=== PATIENT | female | born 1960 | race Caucasian/White ===

== ENCOUNTER 2017-03-06 19:53 | Inpatient (IN) | payer MEDICARE ==
[~2017-03-06] VITALS: Ht 157.5 cm; Wt 85.1 kg
--- NOTE | ~2017-03-06 | HEMODYNAMI ---
PATIENT:ANIA MILLER MEDICAL RECORD: [id number] : 56 LOCATION:[facility] D.2104 ADMISSION DATE: 03/06/17 Generatedon:03/07/201714:18 Patient name: ANIA MILLER Patient #: [id number] SSN: : Date of study: 03/07/2017 Page: Of Hemodynamic Procedure Report Patient Data Patient Demographics Procedure consent was obtained First Name: ANIA Gender: Female Last Name: ANGELA : 1960 Patient #: [id number] Age: 56 year(s) Race: Unknown Additional ID: [id number] Contact details Address: [address] [place] [address] State: [place] City: [place] Zip code: [address] Admission Admission Data Admission Date: 03/06/2017 Admission Time: 22:18 Room #: D.2104 Procedure Procedure Types Cath Procedure Peripheral Cath Diagnostic Procedure Miscellaneous Procedure Description Procedure Date Procedure Date: 03/07/2017 Procedure Start Time: 13:48 Procedure Staff Name Function Drew Fuchs MD Performing Physician Rama Turner RT Scrub Virgil Hampton RN Nurse Matt Scott RT Monitor Procedure Data Cath Procedure Fluoroscopy Diagnostic fluoroscopy Total fluoroscopy Time: 1.1 time: 1.1 min min Diagnostic fluoroscopy Total fluoroscopy dose: 42 dose: 42 mGy mGy Contrast Material Contrast Material Type Amount (ml) Isovue 300 20 Procedure Medications Medication Administration Route Dosage Fentanyl I.V. 50 mcg Versed 1 mg Fentanyl I.V. 50 mcg Hemodynamics Rest Heart Rate: 83 (bpm) Snapshots Pre Cath Intra NCS Post Cath Vital Signs Time Heart Resp SPO2 NIBP (mmHg) Rhythm Pain Sedation Rate (ipm) (%) Status Level (bpm) 13:23:49 99 11 98 147/99(120) NSR 0 (11) 10(A) , No pain 13:28:14 80 13 98 143/84(110) NSR 0 (11) 10(A) , No pain 13:32:34 91 12 98 145/85(125) NSR 0 (11) 10(A) , No pain 13:36:54 5 98 143/88(124) NSR 0 (11) 10(A) , No pain 13:41:16 74 98 145/87(120) NSR 0 (11) 10(A) , No pain 13:45:40 99 143/84(120) NSR 0 (11) 10(A) , No pain 13:50:02 82 33 99 142/78(118) NSR 0 (11) 10(A) , No pain 13:54:21 82 8 98 134/81(102) NSR 0 (11) 10(A) , No pain 13:58:38 78 12 98 140/81(108) NSR 0 (11) 10(A) , No pain 14:02:59 79 10 99 151/81(111) NSR 0 (11) 10(A) , No pain 14:07:17 75 12 97 128/84(117) NSR 0 (11) 10(A) , No pain 14:12:16 80 10 96 Measuring NSR 0 (11) 10(A) , No pain 14:12:34 81 12 95 145/92(124) NSR 0 (11) 10(A) , No pain 14:16:54 114/70(92) NSR 0 (11) 10(A) , No pain Medications Time Medication Route Dose Verified Delivered Reason Notes Effectivene ss by by 13:46:07 Fentanyl I.V. 50 Drew Herman for mcg Gilberto Fuchs sedation RN 13:46:26 Versed 1 mg Gilberto Laguna MD RN 13:56:31 Fentanyl I.V. 50 Drew Herman for mcg Gilberto Fuchs MD chemist helper Log Time Note 13:12:15 Matt Scott RT (R) (CV) sent for patient. Start room use. 13:12:25 Time tracking: Regular hours 13:12:30 Plan of Care:Hemodynamics will remain stable., Cardiac rhythm will remain stable., Comfort level will be maintained., Respiratory function will remain adequate., Patient/ family verbilizes understanding of procedure., Procedure tolerated without complication., Recovers from procedure without complications.. 13:12:37 Patient received from [facility] to IR Alert and oriented. Tansferred to table in Supine position. 13:12:39 Correct patient and procedure confirmed by team. 13:12:41 Signed procedure consent form obtained from patient. 13:12:42 ECG and BP/O2 sat monitors applied to patient. 13:12:43 Full Disclosure recording started 13:12:43 - 13:13:07 H&P Date Dictated: 03/07/2017 H&P Addendum completed by physician on day of procedure. (MUST COMPLETE FOR ALL OUTPATIENTS). 13:13:08 Pre-procedure instructions explained to patient. 13:13:08 Pre-op teaching completed and patient verbalized understanding. 13:13:12 Family in waiting room. 13:13:15 Patient NPO since Breakfast. 13:13:21 Is the patient allergic to Iodine/contrast media? No. 13:13:22 Is patient on blood thinner?No 13:13:24 Patient diabetic? No. 13:13:26 - 13:13:34 Use device set IR Diagnostic 13:13:36 Sterile Angiographic Pack opened to sterile field. 13:13:37 Bag Decanter opened to sterile field. 13:13:51 ----Pre-sedation anethsthesia assessment.---- 13:13:55 Previous problem with sedation/anesthesia? No ? 13:13:56 Snore? Yes 13:13:58 Sleep apnea? No 13:13:59 Deviated septum? No 13:14:00 Opens mouth fully? Yes 13:14:01 Sticks out tongue? Yes 13:14:04 Airway obstruction? No ? 13:14:05 Dentures? No ? 13:14:12 Patient pain scale 0/10 no pain. 13:14:20 IV patent on arrival in port with 0.9% NaCl at KVO. 13:14:21 Sharps counted by scrub and verified by R.N. 13:22:22 Vital chart was started 13:22:25 Baseline sample Acquired. 13:39:23 Physician arrived 13:39:23 --------ALL STOP TIME OUT------ 13:39:24 Final Timeout: patient, procedure, and site verified with staff and physician. All members of the team are in agreement. 13:39:28 Right abdomen site verified by team. 13:40:00 Physical assessment completed. ASA score P 3 - A patient with severe systemic disease as per Drew Fuchs MD. 13:40:04 Sedation plan: IV Moderate Sedation Versed, Fentanyl 13:46:07 Fentanyl 50 mcg I.V. was administered by Virgil Hampton RN; for sedation; 13:46:26 Versed 1 mg was administered by Virgil Hampton RN; for sedation; 13:48:14 ZOSYN 2.25 G GIVEN IV PER VIRGIL HAMPTON 13:48:19 Procedure started. 13:48:25 Local anesthetic to Abdominal area with Lidocaine 1% by Drew Fuchs MD.INITIAL ACCESS ONLY 13:54:08 Terumo Angled SS 180cm glide wire opened to sterile field. 13:56:31 Fentanyl 50 mcg I.V. was administered by Virgil Hampton RN; for sedation; 13:58:42 Abscession 10Fr 45cm drainage catheter opened to sterile field. 14:05:47 Procedure ended.(Physican Out) 14:07:28 Fluoroscopy time 01.10 minutes. 14:07:33 Fluoroscopy dose: 42 mGy 14:07:33 Flurop Dose total: 42 14:15:46 Contrast amount:Isovue 300 20ml. 14:15:48 Sharps counted by scrub and verified by R.N. 14:15:51 Insertion/operative site no bleeding no hematoma. 14:15:57 Post Abdominal area:stable 14:15:59 Post Procedure Pulses reassessed and unchanged 14:16:05 14:16:10 Post-procedure physical assessment completed. ASA score P 3 - A patient with severe systemic disease as per Drew uFchs MD. 14:16:12 Post procedure instruction explained to patient.Patient verbalizes understanding. 14:16:13 Procedure and supply charges have been captured, reviewed, submitted an d are correct. 14:16:22 Post procedure rhythm: unchanged. 14:16:[address] [facility]. 14:16:[address] [facility] with Bed. 14:18:37 Vital chart was stopped Device Usage Item Name Manufacture Quantity Catalog Hospital Part Current Minima l Lot# / Number Charge Number Stock Stock Serial# Code Sterile Cardinal 1 [id number] Angiographic Health Pack Bag Decanter Microtek 1 [id number] 5 [employer] Terumo Terumo 1 [id number] 5 Angled SS 180cm glide wire Abscession Angiodynamics 1 [id number] 5 10Fr 45cm drainage catheter Signature Audit [place] [facility] Time Signature Unsigned Intra-Procedure 03/07/2017 Matt 2:18:34 PM Sonia RT (R) (CV) Signatures Monitor : Matt Signature : Sonia RT Date : Time : [address] [address]
[2017-03-06] MEDS ORDERED: NORVASC5 MG PO (22:25)
[2017-03-06] MEDS ORDERED: ROCALTROL0.25 MCG PO (22:25)
[2017-03-06] MEDS ORDERED: SODIUM BICARBO650 MG PO (22:26)
--- NOTE | 2017-03-06 22:29 | NUR ---
PT RECEIVED VIA EMS, AWAKE, ALERT, ORIENTED, HUNGRY, BUT OTHERWISE NO NEEDS. REID ANTONIO PAGED BEFORE [employer] FOR RENAL, ORDERED STAT CMP AND CBC, RENAL DIET AND CALL BACK NICKI WITH LAB RESULT. PT DENIES ANY NEEDS AT THIS TIME. CONTINUE TO MONITOR PT CLOSELY.
[2017-03-06 22:56] VITALS: BP 144/77; BMI 34.8
[2017-03-06 23:12] LABS: BILIRUBIN - TOTAL 0.29 mg/dL (0.2-1.3); CALCIUM 8.6 mg/dL (8.5-10.1); CARBON DIOXIDE 17.1 mmol/L (21.0-32.0); CREATININE - SERUM 12.2 mg/dL (0.6-1.3); POTASSIUM - SERUM 5.1 mmol/L (3.5-5.1); PROTEIN - SERUM 7.5 g/dL (6.4-8.2)
[2017-03-06 23:49] LABS: BASOPHILS 0.4 % (0-2); EOSINOPHILS 1.5 % (0-7); HEMATOCRIT 26.4 % (36.0-48.0); HEMOGLOBIN 8.9 g/dL (12-16); LYMPHOCYTES 34.9 % (15-50); MCH 31.6 pg (26.0-34.0); MCHC 33.7 g/dL (31.0-37.0); MCV 93.6 fL (80.0-100.0); MEAN PLATELET VOLUME 9.2 fL (7.4-10.4); MONOCYTES 6.9 % (2-11); NEUTROPHILS 56.3 % (40-80); PLATELET COUNT 314 10x3/uL (130-400); RBC 2.82 10x6/uL (4.00-5.40); WBC 4.8 10x3/uL (4.8-10.8)
[2017-03-07 04:00] VITALS: BP 110/65
--- NOTE | 2017-03-07 04:02 | NUR ---
PT RESTING COMFORTABLY, STATES SHE HAS HAD 3 BM'S SINCE THE KAYEXELATE, DENIES ANY NEEDS. CONTINUE TO MONITOR CLOSELY. BED LOW, CALL LIGHT IN REACH, SIDE RAILS X 2, HOB 20 DEGREES.
[2017-03-07 05:13] LABS: BASOPHILS 0.7 % (0-2); EOSINOPHILS 1.8 % (0-7); HEMATOCRIT 26.4 % (36.0-48.0); HEMOGLOBIN 9.1 g/dL (12-16); IMMATURE GRANULOCYTES 0.2 % (0-5); LYMPHOCYTES 30.5 % (15-50); MCH 32.2 pg (26.0-34.0); MCHC 34.5 g/dL (31.0-37.0); MCV 93.3 fL (80.0-100.0); MEAN PLATELET VOLUME 9.3 fL (7.4-10.4); MONOCYTES 8.8 % (2-11); PLATELET COUNT 290 10x3/uL (130-400); RBC 2.83 10x6/uL (4.00-5.40); WBC 4.6 10x3/uL (4.8-10.8)
[2017-03-07 05:26] LABS: ANION GAP 20.3 mmol/L (8-16); CALCIUM 8.3 mg/dL (8.5-10.1); CARBON DIOXIDE 18.1 mmol/L (21.0-32.0); CREATININE - SERUM 11.5 mg/dL (0.6-1.3); POTASSIUM - SERUM 5.4 mmol/L (3.5-5.1)
--- NOTE | 2017-03-07 08:01 | NUR ---
AM ROUNDS - PT IS AWAKE IN BED. NON SKID SOCKS ON. RIGHT CHEST HEMOSPLIT. BED AT LOWEST POSITION. CALL EDWARD IN USE/REACH. SIDE RAILS UP X2. PT ON ROOM AIR. NO NEEDS AT THIS TIME. WILL CONTINUE TO MONITOR
[2017-03-07 10:41] VITALS: Ht 157.5 cm; Wt 85.1 kg
[2017-03-07 12:00] VITALS: BP 132/78
[2017-03-07 12:48] LABS: INR 1.01 (0.85-1.17); PROTIME 13.1 SECONDS (11.6-15.0)
--- NOTE | 2017-03-07 14:08 | NUR ---
PT IS OFF FLOOR FOR PROCEDURE IN IR. UNABLE TO INFUSE 1 TIME ORDER FOR ZOSYN AT THIS TIME. WILL HANG WHEN PT RETURNS.
[2017-03-07 14:11] VITALS: BP 127/78
[2017-03-07 16:00] VITALS: BP 127/78
--- NOTE | 2017-03-07 17:21 | NUR ---
PT IN BED WITH NO NEEDS AT THIS TIME. WILL CONTINUE TO MONITOR
[2017-03-07 19:00] VITALS: BP 137/82
--- NOTE | 2017-03-07 19:00 | NUR ---
REPORT RECIEVED, INITIAL ASSESSMENT COMPLETE, PLEASE SEE FLOW SHEETS FOR DETAILS. DENIES PAIN/NEEDS ATT. ASSESSMED UROSTOMY SIDE, WNL. VSS, BED LOW AND LOCKED, CALL LIGHT IN REACH. WILL CPOC.
[2017-03-07 19:30] VITALS: BP 137/82
[2017-03-08] VITALS: BP 128/86
[2017-03-08 04:00] VITALS: BP 141/80
[2017-03-08 04:28] LABS: BASOPHILS 0.8 % (0-2); EOSINOPHILS 2.5 % (0-7); HEMATOCRIT 27.6 % (36.0-48.0); HEMOGLOBIN 9.4 g/dL (12-16); IMMATURE GRANULOCYTES 0.2 % (0-5); LYMPHOCYTES 35.2 % (15-50); MCH 31.3 pg (26.0-34.0); MCHC 34.1 g/dL (31.0-37.0); MEAN PLATELET VOLUME 9.3 fL (7.4-10.4); MONOCYTES 8.5 % (2-11); NEUTROPHILS 52.8 % (40-80); PLATELET COUNT 303 10x3/uL (130-400); RDW 12.9 % (11.5-14.5); WBC 5.3 10x3/uL (4.8-10.8)
[2017-03-08 04:39] LABS: CALCIUM 7.4 mg/dL (8.5-10.1); CREATININE - SERUM 9.8 mg/dL (0.6-1.3)
[2017-03-08 04:40] LABS: ANION GAP 14.1 mmol/L (8-16); CARBON DIOXIDE 28.3 mmol/L (21.0-32.0); POTASSIUM - SERUM 4.4 mmol/L (3.5-5.1)
[2017-03-08 08:00] VITALS: BP 134/84
--- NOTE | 2017-03-08 08:18 | NUR ---
AM ROUNDS - PT IN BED WILL NO NEEDS AT THIS TIME. RIGHT UROSTOMY. PT ON RA. RIGHT CHEST INFUSAPORT, BICARB AT 125CC/HR. BED AT LOWEST POSITION, CALL EDWARD IN USE/REACH. SIDE RAILS UP X2. WILL CONTINUE TO MONITOR
[2017-03-08 11:57] VITALS: BP 125/83
[2017-03-08 16:00] VITALS: BP 120/83
--- NOTE | 2017-03-08 18:39 | NUR ---
PT IN BED WITH NO NEEDS AT THIS TIME. WILL CONTINUE TO MONITOR
--- NOTE | 2017-03-08 19:51 | NUR ---
PT IN BED TALKING ON CELLPHONE. DENIES NEEDS AT THIS TIME. WILL CONTINUE TO MONITOR.
[2017-03-08 20:00] VITALS: BP 128/83
[2017-03-09 04:00] VITALS: BP 145/82
[2017-03-09 04:47] LABS: BASOPHILS 1.1 % (0-2); EOSINOPHILS 3.6 % (0-7); HEMATOCRIT 29.1 % (36.0-48.0); HEMOGLOBIN 9.8 g/dL (12-16); IMMATURE GRANULOCYTES 1.6 % (0-5); LYMPHOCYTES 42.9 % (15-50); MCH 31.9 pg (26.0-34.0); MCHC 33.7 g/dL (31.0-37.0); MCV 94.8 fL (80.0-100.0); MEAN PLATELET VOLUME 9.7 fL (7.4-10.4); MONOCYTES 6.3 % (2-11); NEUTROPHILS 44.5 % (40-80); PLATELET COUNT 294 10x3/uL (130-400); RBC 3.07 10x6/uL (4.00-5.40); RDW 13.1 % (11.5-14.5); WBC 5.6 10x3/uL (4.8-10.8)
[2017-03-09 05:20] LABS: ANION GAP 20.2 mmol/L (8-16); CALCIUM 7.8 mg/dL (8.5-10.1); CREATININE - SERUM 7.8 mg/dL (0.6-1.3); POTASSIUM - SERUM 4.5 mmol/L (3.5-5.1)
[2017-03-09 05:29] LABS: CARBON DIOXIDE 20.3 mmol/L (21.0-32.0)
--- NOTE | 2017-03-09 07:57 | NUR ---
AM ROUNDS - PT IN BED WITH NO NEEDS AT THIS TIME. PT IS ON ROOM AIR. RIGHT SIDE UROSTOMY DRAINING CLEAR YELLOW. RIGHT CHEST INFUSAPORT, NS AT 75CC/HR. BED AT LOWEST POSITION. SIDE RAILS UP X2. CALL EDWARD IN USE/REACH. WILL CONTINUE OT MONITOR
[2017-03-09 08:00] VITALS: BP 120/66
[2017-03-09 11:17] LABS: HEPATITIS C ANTIBODY 0.1 (0.0-0.9)
[2017-03-09 12:00] VITALS: BP 135/85
--- NOTE | 2017-03-09 12:07 | NUR ---
RD f/u note: Pt with good appetite, no complaints. Discussed about renal diet food high in potassium, phos, and sodium. Noted pt s/p sucessful regrograde L uteteral stent. per md likely go home over weekend. Diet: renal PO;75-100% MEDS: reviewed Labs: reviewed, bun and creat elevated though trending down Skin: urostomy noted to be draining clear yellow. WT: down slightly 03/06-190, 03/09-186 BM 03/07 Pt with good intake. labs indicative to be improving with pt possiably going home this weekend. No changes at this time. PLAN: RD to follow.
[2017-03-09 16:11] VITALS: BP 128/77
--- NOTE | 2017-03-09 17:19 | NUR ---
PT WAS SEEN WALKING THE FLOOR. NOW BACK IN BED. NO NEEDS AT THIS TIME. WILL CONTINUE TO MONITOR
[2017-03-09 20:00] VITALS: BP 130/84
[2017-03-10] VITALS: BP 114/60
--- NOTE | 2017-03-10 01:45 | NUR ---
RESTING WITH EYES CLOSED. RR EVEN U/L. NO S/S OF DISCOMFORT. CL IN REACH.
[2017-03-10 04:00] VITALS: BP 130/77
[2017-03-10 05:04] LABS: ANION GAP 17.4 mmol/L (8-16); CALCIUM 8.5 mg/dL (8.5-10.1); CARBON DIOXIDE 21.1 mmol/L (21.0-32.0); CREATININE - SERUM 6.8 mg/dL (0.6-1.3); POTASSIUM - SERUM 4.5 mmol/L (3.5-5.1)
--- NOTE | 2017-03-10 07:41 | NUR ---
Pt is alert and oriented with no c/o pain. rt urostomy functioning, pt states has had since early 1999', with no issues. Rt IP patent with normal saline at 75ml/hour. Pt states she believes a decision will be made today whether or not to discharge or admit as pt is currently on OBS status. No c/o pain, call light in reach.
[2017-03-10 07:51] VITALS: BP 115/68
--- NOTE | 2017-03-10 09:42 | NUR ---
Informed pt that she will discharge home today.
--- NOTE | 2017-03-10 10:07 | NUR ---
Discharge instructions reviewed with pt, who had no questions and verbalized understanding of instructions. Pt will call sister to transport and understands IV will be discontinued at discharge.
--- NOTE | 2017-03-10 10:43 | NUR ---
[place] needle removed from IP, no bleeding. Site covered with large Bandaid-type dressing.
--- NOTE | 2017-03-10 11:44 | NUR ---
PT SITTING UP IN BED WATCHING TV DENIES NEEDS. WAITING ON HER RIDE TO BE DC HOME.
--- NOTE | 2017-03-10 12:21 | NUR ---
Pt denies pain or needs at this time. No bleeding from IP site post hill needle removal.
--- NOTE | 2017-03-10 13:33 | NUR ---
Pt left ambulatory with family (declined w/c), personal belongings, and discharge instructions. No c/o pain, no s/s distress.
== END 2017-03-10 13:34 | disposition home or self-care (01) | DRG 699 ==
LOC: D.M2 19:53
PROVIDERS: General Practice; Internal Medicine Nephrology; ADMIT Internal Medicine Nephrology
PROC: 0T777DZ Dilation of Left Ureter with Intraluminal Device, Via Natural or Artificial Opening (ICD-10-PCS; 2017-03-07)
PROC: 0TP97DZ Removal of Intraluminal Device from Ureter, Via Natural or Artificial Opening (ICD-10-PCS; principal; 2017-03-07 13:30)
DX: T83.85XA Stenosis due to genitourinary prosthetic devices, implants and grafts, initial encounter (principal); N13.1 Hydronephrosis with ureteral stricture, not elsewhere classified; N18.4 Chronic kidney disease, stage 4 (severe); N17.9 Acute kidney failure, unspecified; E87.2 Acidosis; Y84.8 Other medical procedures as the cause of abnormal reaction of the patient, or of later complication, without mention of misadventure at the time of the procedure; I12.9 Hypertensive chronic kidney disease with stage 1 through stage 4 chronic kidney disease, or unspecified chronic kidney disease; K21.9 Gastro-esophageal reflux disease without esophagitis; Z87.891 Personal history of nicotine dependence; D63.1 Anemia in chronic kidney disease; E87.5 Hyperkalemia; Z90.5 Acquired absence of kidney

== ENCOUNTER 2019-11-01 02:08 | Inpatient (IN) | payer MEDICARE ==
[~2019-11-01] VITALS: Ht 157.5 cm; Wt 77.6 kg
[~2019-11-01 02:08] MED LIST: NORVASC5 MG PO; ROCALTROL0.25 MCG PO; SODIUM BICARBO650 MG PO
[2019-11-01] MEDS ORDERED: FERROUS GLUCON324 MG PO (02:20)
[2019-11-01] MEDS ORDERED: PEPCID40 MG PO (02:20)
[2019-11-01] MEDS ORDERED: SODIUM BICARBO650 MG PO (02:21)
[2019-11-01] MEDS ORDERED: NORVASC10 MG PO (03:46)
[2019-11-01] MEDS ORDERED: RENVELA800 MG PO (03:47)
[2019-11-01 04:00] VITALS: BP 139/83
[2019-11-01 04:12] VITALS: BP 139/83; BMI 31.3
--- NOTE | 2019-11-01 04:34 | NUR ---
PT HAS ORDER FOR TELEMETRY BUT PER SILO FILLER, THERE IS A WAITING LIST SO PTS NAME PUT DOWN ON THE LIST FOR TELEMETRY.
--- NOTE | 2019-11-01 07:15 | NUR ---
PT ALERT AND OREINTED, WANTING A SHOWER THIS MORNING. WILL ACCOMIDATE. CL IN REACH, SRX2.
[2019-11-01 08:03] VITALS: BP 126/72
[2019-11-01 11:04] VITALS: Ht 157.5 cm; Wt 77.6 kg
[2019-11-01 11:56] VITALS: BP 141/83
[2019-11-01 12:20] LABS: % SATURATION 57 % (15-55); IRON 131 ug/dl (35-150); TOTAL IRON BIND CAPACITY 226 ug/dl (260-445); UNSAT IRON BIND CAPACITY 95 ug/dl (150-375)
[2019-11-01 13:05] LABS: HEMATOCRIT 31.4 % (36.0-48.0); HEMOGLOBIN 10.3 g/dL (12-16); LYMPHOCYTES 37.6 % (15-50); MCHC 32.8 g/dL (31.0-37.0); MCV 97.5 fL (80.0-100.0); MEAN PLATELET VOLUME 9.5 fL (7.4-10.4); NEUTROPHILS 51.3 % (40-80); PLATELET COUNT 245 10x3/uL (130-400); RBC 3.22 10x6/uL (4.00-5.40); RDW 12.9 % (11.5-14.5)
[2019-11-01 13:30] LABS: ALBUMIN 3.6 g/dL (3.4-5.0); ANION GAP 22.7 mmol/L (8-16); BILIRUBIN - TOTAL 0.25 mg/dL (0.2-1.3); CARBON DIOXIDE 12.5 mmol/L (21.0-32.0); CREATININE - SERUM 10.5 mg/dL (0.6-1.3); PROTEIN - SERUM 7.8 g/dL (6.4-8.2)
[2019-11-01 13:34] LABS: POTASSIUM - SERUM 6.2 mmol/L (3.5-5.1)
[2019-11-01 15:49] VITALS: BP 119/76
--- NOTE | 2019-11-01 17:07 | NUR ---
CALLED REPORT BANDAR ALFARO AT [facility] IN [facility], PT TO GO TO ROOM 418
--- NOTE | 2019-11-01 18:30 | NUR ---
PT ESCORTED OUT VIA STRETCHER TO AMBULANCE TO [facility].
== END 2019-11-01 18:30 | DRG 694 ==
LOC: D.ER 02:08 → D.M2 02:38
PROVIDERS: ADMIT Internal Medicine Nephrology; ATTEND Internal Medicine Nephrology
DX: N13.30 Unspecified hydronephrosis (principal); N17.9 Acute kidney failure, unspecified; D64.9 Anemia, unspecified; I10 Essential (primary) hypertension